=== PATIENT | female | born 1980 | race Caucasian/White ===

== ENCOUNTER 2022-11-19 05:28 | Inpatient (IN) | payer OTHER ==
[2022-11-16 14:56] LABS: BASOPHILS % (AUTO) 0.8 % (0-1); EOSINOPHILS # (AUTO) 0.2 X10'3 (0-0.9); LYMPHOCYTES # (AUTO) 2.1 X10'3 (1.1-4.8); LYMPHOCYTES % (AUTO) 35.1 % (21-51); MEAN CORPUSCULAR HEMOGLOBIN 30.1 PG (27.0-31.0); MEAN CORPUSCULAR HGB CONC 33.6 g/dL (33.0-36.5); MEAN CORPUSCULAR VOLUME 89.5 FL (78-98); MEAN PLATELET VOLUME 8.9 FL (7.4-10.4); MONOCYTES # (AUTO) 0.5 X10'3 (0-0.9); NEUTROPHILS # (AUTO) 3.1 X10'3 (1.8-7.7); NEUTROPHILS % (AUTO) 53.1 % (42-75); PRE OP HEMATOCRIT 36.2 % (35.0-45.0); PRE OP HEMOGLOBIN 12.2 g/dL (12.0-16.0); PRE OP PLATELET COUNT 239 X10'3 (140-440); RED BLOOD COUNT 4.05 X10'6 (4.20-5.60); RED CELL DISTRIBUTION WIDTH 13.6 % (11.5-14.5)
[2022-11-16 15:11] LABS: HCG SERUM QL NEGATIVE
[2022-11-16 15:12] LABS: ALBUMIN/GLOBULIN RATIO 1.1 (1.1-1.5); ALKALINE PHOSPHATASE 50 IU/L (46-116); BLOOD UREA NITROGEN 15 MG/DL (7-18); BUN/CREATININE RATIO 17.6 (6.6-38.0); CALCIUM 8.8 MG/DL (8.5-10.1); CHLORIDE 105 MMOL/L (99-107); CREATININE 0.85 MG/DL (0.40-0.90); PRE OP ALT 28 U/L (30-65); PRE OP ANION GAP 9 (8-16); PRE OP AST 33 U/L (10-37); PRE OP BILIRUB, TOTAL 0.4 MG/DL (0.0-1.0); PRE OP GLUCOSE 85 MG/DL (70-104); PRE OP POTASSIUM 3.8 MMOL/L (3.4-5.1); PRE OP SODIUM 140 MMOL/L (135-145); TOTAL CARBON DIOXIDE 25.9 MMOL/L (24-32); TOTAL PROTEIN 7.6 G/DL (6.4-8.2); eGFR 74 ML/MIN
[~2022-11-19] VITALS: Ht 167.6 cm; Wt 63.8 kg
[2022-11-19] VITALS (21 sets, daily range): BP systolic 91–141; BP diastolic 45–89
[~2022-11-19 05:28] MED LIST: NO HOME MEDS; ringers solution, lacted 1,000 ML IV SCH
[2022-11-19] MEDS ORDERED: gabapentin 300mg capsule PO ONE (05:30)
[2022-11-19] MEDS ORDERED: ceFOXitin 2GM-NS 100mL ADDvant 100 ML IV ONE (05:30)
[2022-11-19] MEDS ORDERED: phenazopyridine 100mg tablet PO ONE (05:30)
[2022-11-19] MEDS ORDERED: famotidine 20mg tablet PO ONE (05:30)
[2022-11-19] MEDS ORDERED: acetaminophen 325mg tablet PO ONE (05:30)
[2022-11-19] MEDS ORDERED: celeCOXIB 100mg capsule PO ONE (05:30)
[2022-11-19] MEDS ORDERED: vasoPRESSIN 20 units/ml inj. ONE (06:48)
[2022-11-19] MEDS ORDERED: midazolam 1 mg/ML 2ml injection ONE (07:16)
[2022-11-19] MEDS ORDERED: fentaNYL/PF 50MCG/1 ML 2ML syringe ONE ×2 (07:16→10:11)
[2022-11-19] MEDS ORDERED: propofol inj 20 ML IV ONE (07:17)
[2022-11-19] MEDS ORDERED: neostigmine methylsulfate 1 MG/ML 10ml vial ONE (07:17)
[2022-11-19] MEDS ORDERED: dexamethasone sod phosphate 4mg/ml inj. ONE (07:17)
[2022-11-19] MEDS ORDERED: rocuronium 10mg/ml inj IV ONE ×3 (07:17→09:47)
[2022-11-19] MEDS ORDERED: glycopyrrolate 0.2mg/ml inj ONE (07:17)
[2022-11-19] MEDS ORDERED: LIDOcaine 1%/PF 5ML 10 MG/ML VIAL ONE (07:17)
[2022-11-19] MEDS ORDERED: ondansetron/PF 4mg/2ml inj ONE (07:17)
[2022-11-19] MEDS ORDERED: morphine 4 MG/ML inj SYRINge IV PRN (07:20)
[2022-11-19] MEDS ORDERED: fentaNYL/PF 50MCG/1 ML 2ML syringe IV PRN ×2 (07:20)
[2022-11-19] MEDS ORDERED: labetalol 20mg/4ml (5mg/ml) syringe IV PRN (07:20)
[2022-11-19] MEDS ORDERED: ringers solution, lacted 1,000 ML IV SCH (07:20)
[2022-11-19] MEDS ORDERED: morphine 2 MG/ML inj. syringe IV PRN (07:20)
[2022-11-19] MEDS ORDERED: ondansetron/PF 4mg/2ml inj IV PRN (07:20)
[2022-11-19] MEDS ORDERED: hydrALAZINE 20mg/ml inj. IV PRN (07:20)
[2022-11-19] MEDS ORDERED: sevoflurane 250ml liquid IH ONE (07:22)
[2022-11-19] MEDS ORDERED: ATROPINE SULFATE 0.4 MG/ML injection (OR only) ONE (08:31)
--- NOTE | 2022-11-19 10:49 | NUR ---
Received from OR via HOSPITAL BED, accompanied by Anesthesiologist DR OZUNA and report given by Anesthesiologist. PT IS STILL SLEEPY. VSS. PT RECEIVING 8L O2 TO MASK AND TOLERATING WELL, O2 SAT > 96%. WILL TITRATE O2 DOWN PT TOLERATES. PT HAS 20G PIV TO RIGHT HAND WITH LR INFUSING @ 100ML/HR ORDERED. PT HAS ABD DRESSING THAT ARE C/D/I. [employer]ROE CATHETER DRAINING CLEAR ORANGE URINE. PT RESTING COMFORTABLY. WILL CONTINUE TO ASSESS. Addendum: 11/19/22 at 1131 by Gabe Grover RN Amended: Links added.
[2022-11-19] MEDS ORDERED: diphenhydrAMINE 50 mg/ml inj IV PRN (11:20)
[2022-11-19] MEDS ORDERED: mag hydrox/Alum hydrox/simeth 30ml oral suspension PO PRN (11:20)
[2022-11-19] MEDS ORDERED: normal saline 500ML IV soln IV PRN (11:20)
[2022-11-19] MEDS ORDERED: PCA WASTE DOCUMENTATION 1 MG ML MC ONE (11:20)
[2022-11-19] MEDS ORDERED: temazepam 15mg capsule PO PRN (11:20)
[2022-11-19] MEDS ORDERED: LORazepam 2 mg/ml vial IV PRN (11:20)
[2022-11-19] MEDS ORDERED: oxyCODONE/APAP 5-325mg tablet PO PRN ×2 (11:20)
[2022-11-19] MEDS ORDERED: naloxone 0.4 mg/ml inj IV PRN (11:20)
[2022-11-19] MEDS ORDERED: magnesium hydroxide 30ml (MOM) UD suspension PO PRN (11:20)
[2022-11-19] MEDS ORDERED: proCHLORperazine 10 MG/2 ml inj IV PRN (11:25)
[2022-11-19] MEDS: HYDROmorph/NS 0.2 mg/ml PCA 100 ML IV SCH ×7 (12:06→23:00)
--- NOTE | 2022-11-19 12:14 | NUR ---
PATIENT HAS MET ALL CRITERIA FOR TRANSFER TO THE SURGICAL FLOOR. VSS. DRESSINGS INTACT. BED LOW, CALL LIGHT PRESENT AND 2 RAILS UP. RN PRESENT TO ACCEPT CARE OF PATIENT AND REPORT HAS BEEN CALLED. ALL QUESTIONS ANSWERED TO ACCEPTING RN. Addendum: 11/19/22 at 1219 by Gabe Grover RN Amended: Links added.
[2022-11-19] MEDS: simethicone 80mg chew tab PO SCH ×2 (13:00→17:57)
[2022-11-19] MEDS ORDERED: ondansetron/PF 4mg/2ml inj IV ONE (13:40)
[2022-11-19] MEDS ORDERED: scopolamine 1mg/72 hr patch TD ONE (13:40)
--- NOTE | 2022-11-19 13:44 | NUR ---
notified dr valdez re: pt very nauseated. one time order for 4 mg zofran order placed along with scopolamine patch.
[2022-11-19] MEDS: ketorolac trometh. 30mg/ml inj. IV SCH ×2 (14:28→19:37)
--- NOTE | 2022-11-19 18:40 | NUR ---
Problems reprioritized. Patient report given, questions answered & plan of care reviewed with marry aiken.
[2022-11-19] MEDS: docusate sod 100mg capsule PO SCH (19:31)
[2022-11-19] MEDS: ondansetron/PF 4mg/2ml inj IV PRN (19:36)
[2022-11-20] MEDS: HYDROmorph/NS 0.2 mg/ml PCA 100 ML IV SCH ×5 (01:00→09:00)
[2022-11-20 02:00] VITALS: BP 117/58
[2022-11-20] MEDS: ketorolac trometh. 30mg/ml inj. IV SCH ×2 (02:19→08:39)
[2022-11-20 07:42] VITALS: BP 137/74
[2022-11-20 07:46] VITALS: BP 103/52
[2022-11-20 07:55] LABS: BASOPHILS % (AUTO) 0.3 % (0-1); EOSINOPHILS % (AUTO) 0.2 % (0-6); HEMATOCRIT 29.9 % (35.0-45.0); HEMOGLOBIN 10.1 g/dl (12.0-16.0); LYMPHOCYTES # (AUTO) 2.1 X10'3 (1.1-4.8); LYMPHOCYTES % (AUTO) 21.7 % (21-51); MEAN CORPUSCULAR HEMOGLOBIN 30.4 PG (27.0-31.0); MEAN CORPUSCULAR HGB CONC 33.6 g/dL (33.0-36.5); MEAN CORPUSCULAR VOLUME 90.2 FL (78-98); MEAN PLATELET VOLUME 9.1 FL (7.4-10.4); MONOCYTES # (AUTO) 1.2 X10'3 (0-0.9); MONOCYTES % (AUTO) 12.2 % (2-12); NEUTROPHILS # (AUTO) 6.3 X10'3 (1.8-7.7); NEUTROPHILS % (AUTO) 65.6 % (42-75); PLATELET COUNT 221 X10'3 (140-440); RED BLOOD COUNT 3.32 X10'6 (4.20-5.60); RED CELL DISTRIBUTION WIDTH 13.7 % (11.5-14.5); WHITE BLOOD COUNT 9.6 X10'3 (4.5-11.0)
[2022-11-20] MEDS: simethicone 80mg chew tab PO SCH ×3 (08:00→19:50)
[2022-11-20 08:09] LABS: ALBUMIN 2.9 G/DL (3.4-5.0); ANION GAP 4 (8-16); BLOOD UREA NITROGEN 12 MG/DL (7-18); BUN/CREATININE RATIO 11.5 (6.6-38.0); CALCIUM 8.2 MG/DL (8.5-10.1); CHLORIDE 106 MMOL/L (99-107); CREATININE 1.04 MG/DL (0.40-0.90); GLUCOSE 94 MG/DL (70-104); POTASSIUM 4.1 MMOL/L (3.5-5.1); SODIUM 137 MMOL/L (135-145); TOTAL CARBON DIOXIDE 26.6 MMOL/L (24-32); eGFR 59 ML/MIN
[2022-11-20] MEDS: docusate sod 100mg capsule PO SCH ×2 (08:40→19:50)
[2022-11-20] MEDS ORDERED: oxyCODONE IR 5mg (immed. release) tablet PO PRN ×2 (10:25)
[2022-11-20] MEDS ORDERED: PCA WASTE DOCUMENTATION 1 MG ML MC SCH (10:46)
[2022-11-20 11:19] VITALS: BP 109/41
[2022-11-20] MEDS ORDERED: normal saline 1000ml 1,000 ML IVB ONE (12:35)
[2022-11-20] MEDS: acetaminophen 325mg tablet PO SCH ×2 (14:19→19:49)
[2022-11-20] MEDS: ketorolac trometh. 30mg/ml inj. IV PRN ×2 (15:45→22:13)
--- NOTE | 2022-11-20 18:29 | NUR ---
Problems reprioritized. Patient report given, questions answered & plan of care reviewed with ARIE ARREAGA.
[2022-11-20 18:30] VITALS: BP 132/76
[2022-11-20 22:00] VITALS: BP 145/69
[2022-11-20] MEDS: ondansetron/PF 4mg/2ml inj IV PRN (22:12)
[2022-11-21] MEDS: acetaminophen 325mg tablet PO SCH ×2 (02:13→08:03)
[2022-11-21 06:05] LABS: BASOPHILS % (AUTO) 0.4 % (0-1); EOSINOPHILS % (AUTO) 0.6 % (0-6); HEMATOCRIT 27.6 % (35.0-45.0); HEMOGLOBIN 9.5 g/dl (12.0-16.0); LYMPHOCYTES # (AUTO) 1.4 X10'3 (1.1-4.8); LYMPHOCYTES % (AUTO) 18.6 % (21-51); MEAN CORPUSCULAR HEMOGLOBIN 30.9 PG (27.0-31.0); MEAN CORPUSCULAR HGB CONC 34.3 g/dL (33.0-36.5); MEAN CORPUSCULAR VOLUME 89.9 FL (78-98); MEAN PLATELET VOLUME 9.2 FL (7.4-10.4); MONOCYTES # (AUTO) 0.7 X10'3 (0-0.9); NEUTROPHILS # (AUTO) 5.4 X10'3 (1.8-7.7); NEUTROPHILS % (AUTO) 71.4 % (42-75); PLATELET COUNT 184 X10'3 (140-440); RED BLOOD COUNT 3.07 X10'6 (4.20-5.60); RED CELL DISTRIBUTION WIDTH 13.5 % (11.5-14.5); WHITE BLOOD COUNT 7.6 X10'3 (4.5-11.0)
[2022-11-21 06:24] LABS: ALBUMIN 2.9 G/DL (3.4-5.0); ANION GAP 3 (8-16); BLOOD UREA NITROGEN 9 MG/DL (7-18); BUN/CREATININE RATIO 9.4 (6.6-38.0); CALCIUM 7.9 MG/DL (8.5-10.1); CHLORIDE 108 MMOL/L (99-107); CREATININE 0.96 MG/DL (0.40-0.90); GLUCOSE 93 MG/DL (70-104); POTASSIUM 3.7 MMOL/L (3.5-5.1); SODIUM 139 MMOL/L (135-145); TOTAL CARBON DIOXIDE 27.7 MMOL/L (24-32); eGFR 64 ML/MIN
[2022-11-21] MEDS: simethicone 80mg chew tab PO SCH (08:00)
[2022-11-21] MEDS: docusate sod 100mg capsule PO SCH (08:02)
--- NOTE | 2022-11-21 11:30 | NUR ---
PSYCHOLOGIST COUNSELING documentation: I have reviewed and agree with all interventions, assessments performed and documented by Brisa Villalobos LVN.
--- NOTE | 2022-11-21 11:40 | NUR ---
PIV discharged to home via private vehicle accompanied to vehicle via wheelchair by staff. pt transported home with family assist. Pt VSS, no c/o pain or discomfort noted at time of discharge. PIV dc with canula intact and no s/sx of infiltration or infection noted. Pt verbally agreeable and expressed understanding of all discharge instructions and education provided.
== END 2022-11-21 11:40 | disposition home or self-care (01) | DRG 743 ==
LOC: PAS IN 05:28 → SUR 3N 12:15
PROVIDERS: ADMIT Obstetrics & Gynecology; ATTEND Obstetrics & Gynecology
PROC: 0UT70ZZ Resection of Bilateral Fallopian Tubes, Open Approach (ICD-10-PCS; 2022-11-19)
PROC: 0USG0ZZ Reposition Vagina, Open Approach (ICD-10-PCS; 2022-11-19)
PROC: 0TJB8ZZ Inspection of Bladder, Via Natural or Artificial Opening Endoscopic (ICD-10-PCS; 2022-11-19)
PROC: 0UT90ZZ Resection of Uterus, Open Approach (ICD-10-PCS; principal; 2022-11-19 07:22)
DX: D25.9 Leiomyoma of uterus, unspecified (principal)
CPT/HCPCS: Z7506; Z7508; 36415; 80048; 80053; 82948; 84703; 85025; 86885; 86900; 86901; 87081; A4355; A4618; A6250; A6258; A7000; C1758; G0378; J0694; J0780; J1100; J1170; J1885; J2250; J2405; J2704; J2710; J3010; J3490; J7030; J7120